=== PATIENT | male | born 2000 | race Hispanic/Latino ===

== ENCOUNTER 2020-11-06 18:21 | Outpatient (CLI) | payer OTHER, SELFPAY ==
--- NOTE | ~2020-11-06 | XR_ITS ---
XR shoulder LT min 2V DATE: 11/06/2020 18:45 INDICATION: Left shoulder pain for 2 months after working out TECHNIQUE: 4 views COMPARISON: None FINDINGS: No fracture or dislocation, periosteal reaction or bone destruction. No abnormal soft tissu e calcification. IMPRESSION: Negative Reviewed, dictated and finalized at location D. IMPRESSION: Negative
== END 2020-11-06 18:22 | disposition home or self-care (01) ==
PROVIDERS: PCP Registered Nurse; Visit Provider Registered Nurse
DX: M25.512 Pain in left shoulder (principal)
CPT/HCPCS: 73030